=== PATIENT | male | born 1975 | race Two or more races ===

== ENCOUNTER 2025-07-04 11:24 | Emergency (ER) | payer MEDICAID, SELFPAY ==
[2025-07-04 11:25] VITALS: BMI 28.1
[2025-07-04 11:53] VITALS: BP 129/79; PULSE 104; RESP 18; TEMP 38.4; O2SAT 97
--- NOTE | 2025-07-04 12:23 | EDNOTE_ITS ---
<Statement entered by Shira Bansal MD - 07/04/25 17:45> I, Shira Bansal MD, have reviewed the history, exam, and assessment of the patient. I have evaluated the patient independently and agree with the plan of care documented by Dr. Wynn. All diagnostic studies were reviewed and discussed. I confirm the diagnosis as documented by the Resident. I was present during the Medical Decision Making for this patient. The patient's plan of care was created between myself and the Resident and consistent with our discussion of the patient's case. ED Male Genitalurinary RME/HPI General Chief complaint: Urogenital-Male Stated complaint: PAINFUL URINATION, DRIBBLING, FEVER X4 DAY Time Seen by Provider: 07/04/25 11:55 Arrival date/time: 07/04/25 11:24 RME / HPI RME / HPI Narrative: CC: buring with urination Patient is a 50-year-old male with a past medical history of diabetes mellitus type 2 non-insulin depdent and hyperlipidemia who presented to the emergeny room vehicle with a chief complaint of UTI/ mal de selena . Patient stated he has had chills at home and dyrusia with urination. Subjective fevers and increase perspiration. Increase frequency and unable to fully empty bladder. Patient den hermilo discharge. Denied foal smelling urine. Patient denied blood in urine. Denied diarrhea. Denied chest pain. history of umbilical hernia repair. Related Data Home Medications ?Medication ?Instructions ?Recorded ?Confirmed atorvastatin 10 mg tablet 10 mg PO QPM 07/06/21 metformin 500 mg tablet 500 mg PO BIDWMEAL 07/06/21 07/06/21 Previous Rx's ?Medication ?Instructions ?Recorded sulfamethoxazole 800 1 tab PO BID UTI 7 days #14 tabs 07/04/25 mg-trimethoprim 160 mg tablet Allergies Allergy/AdvReac Type Severity Reaction Status Date / Time No Known Allergies Allergy Verified 07/04/25 11:27 Review of Systems Review of Systems Narrative Review of Systems: General appearance: NO weight change, NO fatigue, NO weakness, NO fever, NO c hills, NO night sweats, No cough Skin: NO rash, NO itching, NO sores, NO moles HEENT: NO Trauma, NO nausea, NO vomiting, NO visual changes, NO blurry vision, NO double vision, NO tinnitus, NO vertigo, NO ear discharge, NO rhinorrhea, NO stuffiness, NO sneezing, NO allergy, NO epistaxis. NO Hoarseness, NO sore throat, NO swollen neck. Cardiac: NO Palpitations, NO dyspnea on exertion, NO orthopnea, NO paroxysmal nocturnal dyspnea, NO edema Respiratory: NO Shortness of Breath, NO Wheezing, NO Cough, NO Sputum, NO hemoptysis GI:NO appetite, NO nausea, NO vomiting, NO dysphagia, NO changes in bowel frequency, NO stool color, NO diarrhea, NO constipation, NO hemetemesis, NO hemorrhoids, NO melena, NO hematechezia, No abdominal pain, NO jaundice Renal: Yes pain w/ urination, Yes frequency, Yes hesitancy, NO urgency, NO hematuria, NO nocturia, NO incontinence MSK: NO muscle weakness, NO gout, NO arthritis, NO muscle stiffness Neuro: NO headaches, NO tremors, NO weakness, NO paralysis, NO seizures, NO loss of consciousness, NO numbness. Hem: NO anemia, NO easy bruising/bleeding, NO petechiae, NO purpura Endo: NO heat/cold intolerance, NO excessive sweating, NO polyuria, NO polydipsia, NO polyphagia, NO thyroid problems, NO diabetes Pysch: NO mood, NO anxiety, NO depression ED Exam Narrative Physical exam: General Appearance: Alert & Oriented X3, well-nourished male who is lying in bed in no acute distress HEENT: Skull symmetrical and atraumatic. Conjunctivae pink and moist. Pupils equal, round, reactive to light and accommodation (PERRL). External ear without lesion or discharge. Straight, nares patient, mucosa pink, no discharge. Cardio: Normal Rate and Rhythm with S1 and S2 heart sounds. No murmurs or extra heart sounds auscultated. No bruits on carotid auscultation. No peripheral edema or cyanosis. Lungs: Symmetric with good expansion. Chest and back non-tender. Breath sounds vesicular without crackles, wheezing or rhonchi Abdomen: Non-tender, mild protrusion of upper abdomen, Non-distended, Normal Reactive Bowel Sounds Neuro: Alert, cooperative, oriented to person, place, and time. Speech clear. CN grossly intact. Upper motor strength 5/5 and Lower motor strength 5/5. Sensation intact. Course Quality Measures none Orders Category Date Time Status Insert IV NOW Care 07/04/25 12:29 Active Blood Culture (Lab) Stat Lab 07/04/25 12:25 Received CBC Stat Lab 07/04/25 12:25 Completed CMP [Comprehensive Metabolic Panel] Stat Lab 07/04/25 12:25 Completed Lactic Acid [Lactate (Lactic Acid)] Stat Lab 07/04/25 12:25 Completed Procalcitonin Stat Lab 07/04/25 12:25 Completed Urinalysis Stat Lab 07/04/25 13:34 Completed Acetaminophen Tab [Tylenol Tab] Med 07/04/25 12:03 Discontinued 650 mg PO X1 ONE Potassium Chloride [K-Dur] Med 07/04/25 13:29 Discontinued 40 meq PO X1 ONE Ringers Lactated 1000 ml [Lactated Ringers] 1,000 ml Med 07/04/25 12:04 Discontinued IV 999 mls/hr Vital Signs Vital signs: Vital Signs Temperature 101.2 F H 07/04/25 11:53 Pulse Rate 104 H 07/04/25 11:53 Respiratory Rate 18 07/04/25 11:53 Blood Pressure 129/79 07/04/25 11:53 Pulse Oximetry (%) 97 07/04/25 11:53 Oxygen Delivery Method Room Air 07/04/25 11:53 Urogenital - Male Patient data External records reviewed:: [facility] previous records Clinical information provided by:: patient Social determinants that could affect healthcare access:: none Patient has the following chronic illnesses:: Diabetes Mellitus Type 2 and HLD How is presenting disease/condition affected by chronic disease/condition?: uneffected by (DM Type 2 and HLD ) Evaluation data The following diagnostics were reviewed and interpreted by me:: lab results Lab and/or radiology exams considered but not ordered:: None Interpretation Summary: Patient is a 50-year-old male with a past medical history of diabetes mellitus, hyperlipidemia who presented to the emergency room with a chief complaint of polyuria and dysuria. No leukocytosis noted on WBC. Hypokalemia noted on CMP of 3.1, repleted potassium with 40 mEq. Total bili elevated at 1.5 with AST of 57 ALT of 54 patient is asymptomatic. Pro-Kevan 2.09. UA positive for esterase, WBCs of 25. Likely diagnosis of TIA given patient's symptoms, fever noted on vitals, and positive UA. #UTI - The patient's plan was discussed with attending Dr. Nori Wynn MD PGY2 Internal Medicine Medications / Prescriptions Medications or Prescriptions considered but not ordered:: None Medication administrations:: Medication Administration History Discontinued Medications Acetaminophen (Acetaminophen 325 Mg Tablet) 650 mg PO X1 ONE Stop: 07/04/25 12:04 Last Admin: 07/04/25 12:34 Dose: 650 mg Documented By: ROMARIO Lactated Ringer's (Lactated Ringers) 1,000 mls @ 999 mls/hr IV .Q1H1M ONE Stop: 07/04/25 13:04 Last Infusion: 07/04/25 13:40 Dose: Infused Documented By: Admin: 07/04/25 12:36 Dose: 999 mls/hr Documented By: ROMARIO Potassium Chloride (Potassium Chloride 20 Meq Tabcr) 40 meq PO X1 ONE Stop: 07/04/25 13:30 same as above Consultations Consultation(s) initiated? (list below): No Diagnosis Urogenital Male Differential Diagnosis: urinary tract infection, urethritis and prostatitis Most likely diagnosis given after review of the tests above:: Patient is a 50-year-old male with a past medical history of diabetes mellitus, hyperlipidemia who presented to the emergency room with a chief complaint of polyuria and dysuria. No leukocytosis noted on WBC. Hypokalemia noted on CMP of 3.1, repleted potassium with 40 mEq. Total bili elevated at 1.5 with AST of 57 ALT of 54 patient is asymptomatic. Pro-Kevan 2.09. UA positive for esterase, WBCs of 25. Likely diagnosis of TIA given patient's symptoms, fever noted on vitals, and positive UA. #UTI - The patient's plan was discussed with attending Dr. Rolf Wynn MD PGY2 Internal Medicine Admission Indicated Admission indicated?: not indicated Admission Request Was there a request for admission?: No Disposition Plan Disposition Plan: Discharge Discharge Attestation Discharge Attestation: The patient and all family members were given an opportunity to ask questions and understood the discharge instructions. Discharge instructions specifically effects, indications for sooner follow up or return to the emergency department, and the expected course of current diagnosis. Patient condition: Stable Discharge Plan Plan Patient Disposition: HOME (Self Care) Patient condition on transfer: Stable Health Concerns: Instructions: -Please complete dose of antibiotic. Sulfamethoxazole-Trimethoprim 1 tablet twice daily for 7 days. -You have been diagnosed with a urinary tract infection. -Please follow up with your primary care provider within one week of discharge -If your symptoms worsen,please seek immediate medical attention and return to your nearest emergency room -If you do not have a primary care provider, you may follow up at the [facility] at [address] [place] [address] [address], [place] [address], Prescriptions/Referrals Prescriptions/Med Rec: New sulfamethoxazole-trimethoprim 800-160 mg tablet 1 tab PO BID 7 Days Qty: 14 0RF Continued metformin 500 mg Tablet 500 mg PO BIDWMEAL atorvastatin 10 mg Tablet 10 mg PO QPM Referrals: Gopi Angel MD [Primary Care Provider, Family Practice] - In 1 week Problem List Clinical Impression: Urinary tract infection Patient/Caregiver Discharge Instructions Print Language: Bermudian Stand Alone Forms: Jodee Award Info., Patient Portal Info Letter
[2025-07-04 12:34] VITALS: TEMP 38.4
[2025-07-04] MEDS: ACETAMINOPHEN 325 MG TABLET 650 MG PO (12:34)
[2025-07-04 12:36] LABS: Lactate (Lactic Acid) 1.2 mMol/L (0.4-2.0)
[2025-07-04] MEDS: RINGERS LACTATED 1000 ML 1,000 ML 999 ML IV (12:36)
[2025-07-04 12:38] LABS: Basophils # (Auto) 0.0 Thou/mm3 (0.0-0.2); Basophils % (Auto) 0 % (0-2.5); Eosinophils # (Auto) 0.1 Thou/mm3 (0.0-0.5); Eosinophils % (Auto) 1 % (0-10); Hematocrit 46.6 % (41.0-53.0); Hemoglobin 15.4 g/dL (13.5-16.0); Immature Granulocytes Auto 0.03 Thou/mm3 (0.00-0.00); Lymphocytes # (Auto) 0.6 Thou/mm3 (1.0-4.8); Lymphocytes % (Auto) 7 % (10-50); Mean Corpuscular HGB Conc 33.0 g/dl (31.0-37.0); Mean Corpuscular Hemoglobin 26.9 pg (25.0-35.0); Mean Corpuscular Volume 82 fL (80-100); Monocytes # (Auto) 0.5 Thou/mm3 (0.0-0.8); Monocytes % (Auto) 6 % (0-12); Neutrophils # (Auto) 6.5 Thou/mm3 (1.8-7.7); Neutrophils % (Auto) 85 % (37-80); Nucleated Red Blood Cell # 0.00 Thou/mm3 (0.00-0.00); Nucleated Red Blood Cell % 0 /100 WBC (0); Platelet Count 169 Thou/mm3 (140-440); RDW Standard Deviation 36.5 fL (35.1-43.9); Red Blood Count 5.72 Miln/mm3 (4.50-5.90); White Blood Count 7.7 Thou/mm3 (3.8-10.6)
[2025-07-04 13:08] LABS: Alanine Aminotransferase 65 U/L (10-49); Albumin, Serum 4.3 gm/dL (3.5-5.0); Albumin/Globulin Ratio 1.7 (1.2-2.2); Alkaline Phosphatase 109 U/L (46-116); Anion Gap 9 (7-16); Aspartate Amino Transferase 57 U/L (0-34); BUN/Creatinine Ratio 13 Ratio (12-20); Bilirubin,Total 1.5 mg/dL (0.3-1.2); Blood Urea Nitrogen 10 mg/dL (9-23); Calcium 9.0 mg/dL (8.3-10.6); Calcium (Corrected) 9.0 mg/dL (8.5-10.1); Carbon Dioxide 28.0 mMol/L (20.0-31.0); Chloride 100 mMol/L (98-107); Creatinine (Component) 0.8 mg/dL (0.6-1.3); Estimated Creatinine Clearance 111.7 mL/min (>60); Globulin 2.5 gm/dL (2.3-3.5); Glucose 200 mg/dL (74-106); Osmolality,Calculated 278 (275-295); Potassium 3.1 mMol/L (3.4-5.1); Procalcitonin 2.09 ng/ml (0.0-0.49); Sodium 137 mMol/L (136-145); Total Protein 6.8 gm/dL (5.7-8.2); eGFR > 60 See Note
[2025-07-04 13:36] VITALS: TEMP 37.5
[2025-07-04 13:41] LABS: Collection Type, Urine Clean Catch
[2025-07-04 13:48] LABS: Bilirubin,Urine Negative (Negative); Blood,Urine 2+ (Negative); Clarity,Urine Clear (Clear/Hazy); Color,Urine Lt-Yellow (Lt Yel-Yel); Glucose, Urine 3+ (Negative); Ketones,Urine 1+ (Negative); Leukocyte Esterase,Urine Positive (Negative); Nitrite,Urine Negative (Negative); PH,Urine 6.5 (5.0-7.0); Protein,Urine Trace (Neg - Trace); RBC,Urine 6 /hpf (0-3); Specific Gravity,Urine 1.016 (1.001-1.035); Squamous Epithelial Cell,Urine < 1 /hpf (0-5); Urobilinogen,Urine 3.0 mg/dL (0.0-1.0); WBC,Urine 25 /hpf (0-5)
[2025-07-04 14:35] VITALS: BP 128/74; PULSE 84; RESP 16; O2SAT 96
== END 2025-07-04 14:36 | disposition home or self-care (01) ==
PROVIDERS: Emergency Provider Family Medicine; PCP Family Medicine
DX: N39.0 Urinary tract infection, site not specified (principal); E11.9 Type 2 diabetes mellitus without complications; E78.5 Hyperlipidemia, unspecified; E87.6 Hypokalemia
CPT/HCPCS: 36415; 80053; 81001; 83605; 84145; 85025; 87040; 96360; 99283; J7120; A9270